=== PATIENT | female | born 1995 | race Caucasian/White ===

== ENCOUNTER 2020-06-15 19:34 | Observation (INO) | payer BC, OTHER ==
[2020-06-15] MEDS ORDERED: SODIUM CHLORIDE 0.9% 500 ML 500 ML IV ONE (20:02)
[2020-06-15] MEDS ORDERED: SODIUM CHLORIDE 0.9% 1,000 ML IV ONE (20:02)
[2020-06-15] MEDS ORDERED: ACETAMINOPHEN TAB 325 MG TAB PO STA (20:09)
--- NOTE | 2020-06-15 20:17 | ED ---
Nausea/Vomiting/Diarrhea HPI - General Chief complaint: Nausea/Vomiting/Diarrhea Stated complaint: 17 wks preg, Vomiting Time Seen by Provider: 06/15/20 19:55 Source: patient Mode of arrival: ambulatory Limitations: no limitations - History of Present Illness Initial comments: 24yo female who is currently 17 weeks presenting for nausea/vomiting, fevers. Patient states that for the past 5 days she has had increased nausea and vomiting that she had not experienced since early . pt denies cough, congestion, CP and SOB stating that her recent covid test was negative. Pt states she did struggle with UTI her last . Denies flank pain, hx of kidney stones, or abdomina/pelvic pain. Denies diarrhea. pt states that she has had fevers for the past 2 days. patient states she went to [facility] where she was given zofran and told to come to the [facility]. Pt states that she is concerned that she hasnt felt baby move and much. Denies vaginal bleeding/discharge. Denies cramping. pt appears well in no distress on arrival. however is febrile with elevation of HR. - Related Data Home Medications Medication Instructions Recorded Confirmed Gummy 1 tab PO DAILY 06/15/20 06/15/20 Allergies Allergy/AdvReac Type Severity Reaction Status Date / Time No Known Allergies Allergy Verified 06/15/20 20:42 Review of Systems ROS Statement: Those systems with pertinent positive or pertinent negative responses have been documented in the HPI. ROS Other: All systems not noted in ROS Statement are negative. Past Medical History Past Medical History: No Reported History History of Any Multi-Drug Resistant Organisms: None Reported Past Surgical History: No Surgical Hx Reported Past Psychological History: No Psychological Hx Reported Smoking Status: Never smoker Past Alcohol Use History: None Reported Past Drug Use History: None Reported General Exam - General Exam Comments Initial Comments: General: The patient is awake and alert, in no distress Eye: Pupils are equal, round and reactive to light, extra-ocular movements are intact. No nystagmus. There is normal conjunctiva bilaterally. No signs of i cterus. Ears, nose, mouth and throat: There are moist mucous membranes and no oral lesions. Neck: The neck is supple, there is no tenderness or JVD. Cardiovascular: There is a regular rate and rhythm. No murmur, rub or gallop is appreciated. Respiratory: Lungs are clear to auscultation, respirations are non-labored, breath sounds are equal. No wheezes, stridor, rales, or rhonchi. Gastrointestinal: Soft, non-distended, non-tender abdomen without masses or organomegaly noted. There is no rebound or guarding present. No CVA tenderness. Musculoskeletal: Normal ROM, no tenderness. Strength 5/5. Sensation intact. Pulses equal bilaterally 2+. Neurological: A&O x 3. CN II-XII intact grossly, There are no obvious motor or sensory deficits. Coordination appears grossly intact. Speech is normal. Skin: Skin is warm and dry and no rashes or lesions are noted. Psychiatric: Cooperative, appropriate mood & affect, normal judgment. Limitations: no limitations Course Vital Signs 06/15/20 06/15/20 19:43 21:30 Temperature 100.6 F H Pulse Rate 134 H 116 H Respiratory 18 20 Rate Blood Pressure 116/73 120/70 O2 Sat by Pulse 99 99 Oximetry Medical Decision Making - Medical Decision Making 17 week female. Presenting for fevers vomiting. History of frequent UTIs. Concern for polynephritis given urinalysis, patient's leukocytosis. Patient states this is what she suspected. Patient given Zofran at the urgent care this seemed to help patient's emesis. Patient given IV hydration with cultures pending lactic within normal limits. Patient was given Tylenol for fevers. EKG sinus tachycardia. Patient's heart tones are slightly increased from normal levels.. [employer] Dr. Herrera was consulted and he recommended admission to medicine with OB on consultation. He is agreeable to current care plan, we discussed increased heart rate. pt is agreeable to admission. Dr Joyce accepted patient. - Lab Data Result diagrams: 06/15/20 20:15 06/15/20 20:15 Lab Results 06/15/20 06/15/20 06/15/20 Range/Units 20:15 20:15 20:15 WBC 26.6 H (3.8-10.6) k/uL RBC 3.89 (3.80-5.40) m/uL Hgb 11.1 L (11.4-16.0) gm/dL Hct 32.8 L (34.0-46.0) % MCV 84.3 (80.0-100.0) fL MCH 28.4 (25.0-35.0) pg MCHC 33.7 (31.0-37.0) g/dL RDW 13.0 (11.5-15.5) % Plt Count 245 (150-450) k/uL MPV 8.7 Neutrophils % 88 % Lymphocytes % 4 % Monocytes % 5 % Eosinophils % 0 % Basophils % 0 % Neutrophils # 23.5 H (1.3-7.7) k/uL Lymphocytes # 1.1 (1.0-4.8) k/uL Monocytes # 1.3 H (0-1.0) k/uL Eosinophils # 0.1 (0-0.7) k/uL Basophils # 0.1 (0-0.2) k/uL Sodium 130 L (137-145) mmol/L Potassium 3.2 L (3.5-5.1) mmol/L Chloride 101 (98-107) mmol/L Carbon Dioxide 20 L (22-30) mmol/L Anion Gap 9 mmol/L BUN 6 L (7-17) mg/dL Creatinine 0.65 (0.52-1.04) mg/dL Est GFR (CKD-EPI)AfAm >90 (>60 ml/min/1.73 sqM) Est GFR (CKD-EPI)NonAf >90 (>60 ml/min/1.73 sqM) Glucose 105 H (74-99) mg/dL Plasma Lactic Acid Juan (0.7-2.0) mmol/L Calcium 9.5 (8.4-10.2) mg/dL Total Bilirubin 0.8 (0.2-1.3) mg/dL AST 20 (14-36) U/L ALT 13 (4-34) U/L Alkaline Phosphatase 196 H (38-126) U/L Total Protein 7.1 (6.3-8.2) g/dL Albumin 3.8 (3.5-5.0) g/dL Urine Color Yellow Urine Appearance Cloudy H (Clear) Urine pH 6.0 (5.0-8.0) Ur Specific [place] 1.021 (1.001-1.035) Urine Protein 1+ H (Negative) Urine Glucose (UA) Negative (Negative) Urine Ketones 4+ H (Negative) Urine Blood Trace H (Negative) Urine Nitrite Positive H (Negative) Urine Bilirubin Negative (Negative) Urine Urobilinogen 2.0 (<2.0) mg/dL Ur Leukocyte Esterase Large H (Negative) Urine RBC 5 (0-5) /hpf Urine WBC 47 H (0-5) /hpf Ur Squamous Epith Cells 8 H (0-4) /hpf Urine Bacteria Many H (None) /hpf Urine Mucus Many H (None) /hpf Coronavirus (PCR) (Not Detectd) 06/15/20 06/15/20 Range/Units 20:15 20:15 WBC (3.8-10.6) k/uL RBC (3.80-5.40) m/uL Hgb (11.4-16.0) gm/dL Hct (34.0-46.0) % MCV (80.0-100.0) fL MCH (25.0-35.0) pg MCHC (31.0-37.0) g/dL RDW (11.5-15.5) % Plt Count (150-450) k/uL MPV Neutrophils % % Lymphocytes % % Monocytes % % Eosinophils % % Basophils % % Neutrophils # (1.3-7.7) k/uL Lymphocytes # (1.0-4.8) k/uL Monocytes # (0-1.0) k/uL Eosinophils # (0-0.7) k/uL Basophils # (0-0.2) k/uL Sodium (137-145) mmol/L Potassium (3.5-5.1) mmol/L Chloride (98-107) mmol/L Carbon Dioxide (22-30) mmol/L Anion Gap mmol/L BUN (7-17) mg/dL Creatinine (0.52-1.04) mg/dL Est GFR (CKD-EPI)AfAm (>60 ml/min/1.73 sqM) Est GFR (CKD-EPI)NonAf (>60 ml/min/1.73 sqM) Glucose (74-99) mg/dL Plasma Lactic Acid Juan 1.1 (0.7-2.0) mmol/L Calcium (8.4-10.2) mg/dL Total Bilirubin (0.2-1.3) mg/dL AST (14-36) U/L ALT (4-34) U/L Alkaline Phosphatase (38-126) U/L Total Protein (6.3-8.2) g/dL Albumin (3.5-5.0) g/dL Urine Color Urine Appearance (Clear) Urine pH (5.0-8.0) Ur Specific [place] (1.001-1.035) Urine Protein (Negative) Urine Glucose (UA) (Negative) Urine Ketones (Negative) Urine Blood (Negative) Urine Nitrite (Negative) Urine Bilirubin (Negative) Urine Urobilinogen (<2.0) mg/dL Ur Leukocyte Esterase (Negative) Urine RBC (0-5) /hpf Urine WBC (0-5) /hpf Ur Squamous Epith Cells (0-4) /hpf Urine Bacteria (None) /hpf Urine Mucus (None) /hpf Coronavirus (PCR) Not Detected (Not Detectd) Disposition Clinical Impression: Pyelonephritis affecting in second trimester Disposition: ADMITTED IP TO THIS [facility] Condition: Stable Is patient prescribed a controlled substance at d/c from ED?: No Referrals: None,Stated [Primary Care Provider] - 1-2 days Time of Disposition: 21:50 Decision to Admit Reason: Admit from EC Decision Date: 06/15/20 Decision Time: 21:50
[2020-06-15] MEDS: SODIUM CHLORIDE 0.9% 1,000 ML IV SCH (20:25)
[2020-06-15 20:51] LABS: Basophils # (A) 0.1 k/uL (0-0.2); Basophils % (A) 0 %; Eosinophils # (A) 0.1 k/uL (0-0.7); Eosinophils % (A) 0 %; HCT 32.8 % (34.0-46.0); HGB 11.1 gm/dL (11.4-16.0); Lymphocytes # (A) 1.1 k/uL (1.0-4.8); Lymphocytes % (A) 4 %; MCH 28.4 pg (25.0-35.0); MCHC 33.7 g/dL (31.0-37.0); MCV 84.3 fL (80.0-100.0); Mean Platelet Volume 8.7; Monocytes # (A) 1.3 k/uL (0-1.0); Monocytes % (A) 5 %; Neutrophils # (A) 23.5 k/uL (1.3-7.7); Neutrophils % (A) 88 %; Platelet Count 245 k/uL (150-450); RBC 3.89 m/uL (3.80-5.40); WBC 26.6 k/uL (3.8-10.6)
[2020-06-15 21:01] LABS: ALT 13 U/L (4-34); AST 20 U/L (14-36); African American GFR (CKD) >90 (>60 ml/min/1.73 sqM); Albumin 3.8 g/dL (3.5-5.0); Alkaline Phosphatase 196 U/L (38-126); Anion Gap 9 mmol/L; Blood Urea Nitrogen 6 mg/dL (7-17); Calcium 9.5 mg/dL (8.4-10.2); Carbon Dioxide 20 mmol/L (22-30); Chloride 101 mmol/L (98-107); Glucose 105 mg/dL (74-99); Non-African American GFR(CKD) >90 (>60 ml/min/1.73 sqM); Potassium 3.2 mmol/L (3.5-5.1); Sodium 130 mmol/L (137-145); Total Bilirubin 0.8 mg/dL (0.2-1.3); Total Protein 7.1 g/dL (6.3-8.2)
[2020-06-15 21:08] LABS: Appearance,Urine Cloudy (Clear); Bacteria,Urine Many /hpf; Bilirubin,Urine Negative (Negative); Blood,Urine Trace (Negative); Color,Urine Yellow; Glucose,Urine (UA) Negative (Negative); Ketones,Urine 4+ (Negative); Leukocyte Esterase,Urine Large (Negative); Mucus,Urine Many /hpf; Nitrite,Urine Positive (Negative); Protein,Urine 1+ (Negative); RBC,Urine 5 /hpf (0-5); Specific Gravity,Urine 1.021 (1.001-1.035); Squamous Epithelial Cell,Urine 8 /hpf (0-4); WBC,Urine 47 /hpf (0-5)
[2020-06-15] MEDS ORDERED: POTASSIUM CHLORIDE ER 20 MEQ TAB.ER PO STA (21:12)
[2020-06-15] MEDS ORDERED: NALOXONE 0.4 MG/ML 1 ML VIAL IV PRN (21:46)
[2020-06-15] MEDS ORDERED: FAMOTIDINE 20 MG/2 ML VIAL IV STA (22:15)
[2020-06-16] MEDS: ACETAMINOPHEN TAB 325 MG TAB PO PRN ×4 (01:30→19:38)
[2020-06-16] MEDS: SODIUM CHLORIDE 0.9% 1,000 ML IV SCH ×2 (09:03→17:01)
--- NOTE | 2020-06-16 11:05 | P.OBCN ---
History of Present Illness Consult date: 06/16/20 Requesting physician: Sofía Joyce Reason for consult: early problem Chief complaint: UTI with hyperpyrexia 17 weeks History of present illness: Nanette relates that she has had high temperatures and nausea and vomiting for the last few days. She initially wasn't that concerned but as her temperature started to go up she brought herself to the hospital last night and was admitted for urinary tract infection versus pyelonephritis. She has had several blood pressures that are significantly elevated even to 103, but Tylenol has reduce them well. She has received 1 dose of Rocephin for antibiotics and a urine culture is pending. Initially a very concerned with the possibility of pyelonephritis, but on physical exam I did do costovertebral angle tenderness and she has none. This may be just a complex urinary tract infection and not pyelonephritis but regardless treatment will be the same. Will await your recommendations on antibiotics, hopefully the preliminary culture will add something to the treatment regimen but if not repeat Rocephin every 24 hours for now likely will be indicated. She is tolerating a liquid diet at this time and once feeling better may be advanced. From a standpoint other than having a renal vitamins there really isn't anything else significant that we would change. All questions are answered for her at this time and she is at least from a standpoint stable at this time. She does relate however, that she did have multiple urinary tract infections with her last and we did discuss the possibility of not probability that she may need to be on antibiotics long-term potentially even through the entire if she is going to continue to have bladder infections or pyelonephritis. Past Medical History Past Medical History: No Reported History Additional Past Medical History / Comment(s): hx of UTIs with History of Any Multi-Drug Resistant Organisms: None Reported Past Surgical History: No Surgical Hx Reported Past Anesthesia/Blood Transfusion Reactions: No Reported Reaction Past Psychological History: Anxiety, Depression Smoking Status: Never smoker Past Alcohol Use History: None Reported Past Drug Use History: None Reported - Past Family History Father Additional Family Medical History / Comment(s): "heart problems" Mother Additional Family Medical History / Comment(s): lupus Medications and Allergies Home Medications Medication Instructions Recorded Confirmed Type Gummy 1 tab PO DAILY 12/18/20 12/18/20 History Allergies Allergy/AdvReac Type Severity Reaction Status Date / Time No Known Allergies Allergy Verified 06/15/20 22:28 Exam Osteopathic Statement: *. No significant issues noted on an osteopathic structural exam other than those noted in the History and Physical/Consult. Vital Signs Temp Pulse Pulse Resp BP BP Pulse Ox 06/16/20 05:51 103.2 F H 06/16/20 01:28 99.7 F H 119 H 14 118/68 100 06/15/20 22:33 98.6 F 111 H 16 117/75 98 06/15/20 22:12 99.9 F H 118 H 18 119/65 99 06/15/20 21:30 116 H 20 120/70 99 06/15/20 19:43 100.6 F H 134 H 18 116/73 99 Intake and Output 06/15/20 06/16/20 06/16/20 22:59 06:59 14:59 Other: Voiding Method Toilet # Voids 2 Weight 80.286 kg - OBG Physical Exam Breast: both: normal (no masses) Abdomen: bowel sounds normal, no diffuse tenderness, no bruit present, no guarding noted, no hepatomegaly, no splenomegaly, no mass Vulva: both: normal Vagina: normal moisture, no discharge Cervix: no lesion, no discharge Uterus: normal size, normal contour Adnexa: both: normal Anus/Rectum: normal perianal skin, no rectal mass, no hemorrhoids, heme negative Results Result Diagrams: 06/15/20 20:15 06/15/20 20:15 Abnormal Lab Results - Last 24 Hours (Table) 06/15/20 06/15/20 06/15/20 Range/Units 20:15 20:15 20:15 WBC 26.6 H (3.8-10.6) k/uL Hgb 11.1 L (11.4-16.0) gm/dL Hct 32.8 L (34.0-46.0) % Neutrophils # 23.5 H (1.3-7.7) k/uL Monocytes # 1.3 H (0-1.0) k/uL Sodium 130 L (137-145) mmol/L Potassium 3.2 L (3.5-5.1) mmol/L Carbon Dioxide 20 L (22-30) mmol/L BUN 6 L (7-17) mg/dL Glucose 105 H (74-99) mg/dL Alkaline Phosphatase 196 H (38-126) U/L Urine Appearance Cloudy H (Clear) Urine Protein 1+ H (Negative) Urine Ketones 4+ H (Negative) Urine Blood Trace H (Negative) Urine Nitrite Positive H (Negative) Ur Leukocyte Esterase Large H (Negative) Urine WBC 47 H (0-5) /hpf Ur Squamous Epith Cells 8 H (0-4) /hpf Urine Bacteria Many H (None) /hpf Urine Mucus Many H (None) /hpf Microbiology - Last 24 Hours (Table) 06/15/20 20:15 Urine Culture - Preliminary Urine,Clean Catch
[2020-06-16 13:29] LABS: Basophils % (A) 0 %; Eosinophils % (A) 0 %; HCT 28.2 % (34.0-46.0); Lymphocytes # (A) 1.4 k/uL (1.0-4.8); Lymphocytes % (A) 7 %; MCH 28.1 pg (25.0-35.0); MCHC 32.9 g/dL (31.0-37.0); MCV 85.6 fL (80.0-100.0); Mean Platelet Volume 7.9; Monocytes # (A) 0.9 k/uL (0-1.0); Monocytes % (A) 5 %; Neutrophils # (A) 17.1 k/uL (1.3-7.7); Neutrophils % (A) 86 %; Platelet Count 197 k/uL (150-450); RDW 13.1 % (11.5-15.5); WBC 19.9 k/uL (3.8-10.6)
[2020-06-16 13:31] LABS: HGB 9.3 gm/dL (11.4-16.0)
[2020-06-16] MEDS: FAMOTIDINE 20 MG/2 ML VIAL IV SCH (15:09)
--- NOTE | 2020-06-16 16:45 | P.HPIM ---
History of Present Illness H&P Date: 06/16/20 Chief Complaint: Fever Patient is a 24-year-old female with a known history of anxiety/depression, 17 week intrauterine presents to ER with complaints of nausea vomiting which has been present for the past 5 days. Patient was also having fever for the past 2 days and initially not concerned much but since her temperature is increasing she called her physician and was recommended to go to [facility] where she was given Zofran and was told to go to ER.. Patient otherwise denied any complaints of abdominal pain. Denied any abdominal cramps. No complaints of diarrhea or dysuria. No cough or sputum production. Patient did have urinary tract infection during her prior . Patient denied any leg swelling. Patient was febrile on admission T-max 100.6 and tachycardic on admission. EKG showed sinus tachycardia. Laboratory data showed the WBC 26.6, hemoglobin 11.1 and platelets 245 and absolute neutrophil count is 23.5 Sodium 130, potassium 3.2, chloride 20, BP and 6, creatinine 0.65, alk phos 196. Liver enzymes are not elevated. Urinalysis showed cloudy with 1+ protein and 4+ ketones and nitrite positive and large leukocyte esterase. RBCs 5 and WBC is 47 and Coumadin 19 PCR not detected. Review of Systems Constitutional: Patient does have fever. No chills. . No generalized weakness or weight loss. Abdomen: Patient does have nausea vomiting. No abdominal pain. No diarrhea.. Cardiovascular: Patient denies any chest pain or short of breath no palpitations. Respiratory: patient denied any cough is from production. No shortness of breath Neurologic: Patient denied any numbness or tingling headache. Musculoskeletal: Patient denies any complaints of joint swelling or deformity. Skin: Negative Psychiatric: Negative Endocrine: No heat or cold intolerance. No recent weight gain. Genitourinary: No dysuria or hematuria. All other 14 point ROS negative except the above Past Medical History Past Medical History: No Reported History Additional Past Medical History / Comment(s): hx of UTIs with History of Any Multi-Drug Resistant Organisms: None Reported Past Surgical History: No Surgical Hx Reported Past Anesthesia/Blood Transfusion Reactions: No Reported Reaction Past Psychological History: Anxiety, Depression Smoking Status: Never smoker Past Alcohol Use History: None Reported Past Drug Use History: None Reported - Past Family History Father Additional Family Medical History / Comment(s): "heart problems" Mother Additional Family Medical History / Comment(s): lupus Medications and Allergies Home Medications Medication Instructions Recorded Confirmed Type Gummy 1 tab PO DAILY 06/15/20 06/15/20 History Allergies Allergy/AdvReac Type Severity Reaction Status Date / Time No Known Allergies Allergy Verified 06/15/20 22:28 Physical Exam Vitals: Vital Signs Temp Pulse Pulse Resp BP BP Pulse Ox 06/16/20 11:55 98.4 F 105 H 17 115/70 06/16/20 05:51 103.2 F H 06/16/20 01:28 99.7 F H 119 H 14 118/68 100 06/15/20 22:33 98.6 F 111 H 16 117/75 98 06/15/20 22:12 99.9 F H 118 H 18 119/65 99 06/15/20 21:30 116 H 20 120/70 99 06/15/20 19:43 100.6 F H 134 H 18 116/73 99 Intake and Output 06/15/20 06/16/20 06/16/20 22:59 06:59 14:59 Other: Voiding Method Toilet # Voids 2 Weight 80.286 kg PHYSICAL EXAMINATION: Patient is lying in the bed comfortably, no acute distress, awake alert and oriented.. HEENT: Normocephalic. Neck is supple. Pupils reactive. Nostrils clear. Oral cavity is moist. Ears reveal no drainage. Neck reveals no JVD, carotid bruits, or thyromegaly. CHEST EXAMINATION: Trachea is central. Symmetrical expansion. Lung herron clear to auscultation and percussion. CARDIAC: Normal S1, S2 with no gallops. No murmurs ABDOMEN: Soft. Bowel sounds normal. No organomegaly. No abdominal bruits. Extremities: reveal no edema. No clubbing or cyanosis Neurologically awake, alert, oriented x3 with well-coordinated movements. No focal deficits noted Skin: No rash or skin lesions. Psychiatric: Coperative. Nonsuicidal Musculoskeletal: No joint swelling or deformity. Normal range of motion. Results CBC & Chem 7: 06/16/20 12:52 06/15/20 20:15 Labs: Abnormal Lab Results - Last 24 Hours (Table) 06/15/20 06/15/20 06/15/20 Range/Units 20:15 20:15 20:15 WBC 26.6 H (3.8-10.6) k/uL Hgb 11.1 L (11.4-16.0) gm/dL Hct 32.8 L (34.0-46.0) % Neutrophils # 23.5 H (1.3-7.7) k/uL Monocytes # 1.3 H (0-1.0) k/uL Sodium 130 L (137-145) mmol/L Potassium 3.2 L (3.5-5.1) mmol/L Carbon Dioxide 20 L (22-30) mmol/L BUN 6 L (7-17) mg/dL Glucose 105 H (74-99) mg/dL Alkaline Phosphatase 196 H (38-126) U/L Urine Appearance Cloudy H (Clear) Urine Protein 1+ H (Negative) Urine Ketones 4+ H (Negative) Urine Blood Trace H (Negative) Urine Nitrite Positive H (Negative) Ur Leukocyte Esterase Large H (Negative) Urine WBC 47 H (0-5) /hpf Ur Squamous Epith Cells 8 H (0-4) /hpf Urine Bacteria Many H (None) /hpf Urine Mucus Many H (None) /hpf Microbiology - Last 24 Hours (Table) 06/15/20 20:15 Urine Culture - Preliminary Urine,Clean Catch Thrombosis Risk Factor Assmnt - DVT/VTE Prophylaxis DVT/VTE Prophylaxis: Mechanical Prophylaxis ordered - Choose All That Apply Any of the Below Risk Factors Present?: Yes Each Factor Represents 1 point: Obesity (BMI >25), or Other Risk Factors: No Other congenital or acquired thrombophilia - If yes, enter type in comment: No Thrombosis Risk Factor Assessment Total Risk Factor Score: 2 Thrombosis Risk Factor Assessment Level: Low Risk Assessment and Plan Assessment: Acute urinary tract infection. Unlikely acute pyelonephritis. Sepsis secondary to urinary tract infection Intractable nausea and vomiting. Improved now Hypovolemic hyponatremia Hypokalemia Elevated alk phos level Anxiety/depression history 17 week intrauterine GI and DVT prophylaxis with Pepcid and early ambulation Plan: Patient will be continued on IV hydration with normal saline, symptomatic management for nausea and vomiting. Patient was started on ceftriaxone 1 g every 24 hours and follow-up urine culture reports. Continue to replace electrolytes and follow up closely. [employer] service was consulted for evaluation. Continue with Pepcid for GI prophylaxis. Further recommendations based on the clinical course. Encourage ambulation. Time with Patient: Greater than 30
[2020-06-17] MEDS: SODIUM CHLORIDE 0.9% 1,000 ML IV SCH ×2 (02:42→12:29)
[2020-06-17] MEDS: FAMOTIDINE 20 MG/2 ML VIAL IV SCH (02:43)
[2020-06-17] MEDS: ACETAMINOPHEN TAB 325 MG TAB PO PRN ×5 (02:43→23:26)
[2020-06-17 06:24] LABS: Basophils % (A) 0 %; Eosinophils # (A) 0.1 k/uL (0-0.7); Eosinophils % (A) 0 %; HCT 26.6 % (34.0-46.0); HGB 8.9 gm/dL (11.4-16.0); Lymphocytes # (A) 1.5 k/uL (1.0-4.8); Lymphocytes % (A) 9 %; MCH 28.6 pg (25.0-35.0); MCHC 33.6 g/dL (31.0-37.0); MCV 85.1 fL (80.0-100.0); Mean Platelet Volume 7.6; Monocytes # (A) 0.9 k/uL (0-1.0); Monocytes % (A) 5 %; Neutrophils # (A) 12.7 k/uL (1.3-7.7); Neutrophils % (A) 81 %; Platelet Count 206 k/uL (150-450); RBC 3.13 m/uL (3.80-5.40); RDW 13.3 % (11.5-15.5); WBC 15.7 k/uL (3.8-10.6)
[2020-06-17 06:42] LABS: African American GFR (CKD) >90 (>60 ml/min/1.73 sqM); Anion Gap 5 mmol/L; Blood Urea Nitrogen 3 mg/dL (7-17); Calcium 8.1 mg/dL (8.4-10.2); Carbon Dioxide 20 mmol/L (22-30); Chloride 110 mmol/L (98-107); Glucose 86 mg/dL (74-99); Non-African American GFR(CKD) >90 (>60 ml/min/1.73 sqM); Sodium 135 mmol/L (137-145)
--- NOTE | 2020-06-17 11:40 | P.PN ---
Progress Note - Text Progress Note Date: 06/17/20 Nanette is seen and evaluated this morning. Overall she is doing much better. There is been not 24 hours but certainly much longer stretch time without any more high temperatures. Her white blood cell count is now down to 15. Overall she does appear like she is feeling better likely she'll need 1 more day of antibiotics through the IV and then hopefully we can discharge her to home tomorrow. She is tolerating a diet but says she is not eating very much this time. She is noted to have hypokalemia on her labs likely which will need to be replaced will defer to medicine for that replacement. Otherwise she does appear to be doing better. All other questions are answered for her at this time. An following discharge L plan to see her in approximately 11 week to 10 days depending on what they she is actually discharge.
[2020-06-17] MEDS ORDERED: Potassium Replacement Protocol 1 EACH MISC MISCELLANE PRN (12:55)
[2020-06-17] MEDS: PRENATAL VIT-IRON-FOLIC ACID 1 EACH CAP PO SCH (13:42)
[2020-06-17] MEDS ORDERED: SODIUM CHLORIDE 0.9% 1,000 ML IV SCH (19:00)
--- NOTE | 2020-06-17 23:50 | P.PN ---
Subjective Progress Note Date: 06/17/20 Patient is a 24-year-old female with a known history of anxiety/depression, 17 week intrauterine presents to ER with complaints of nausea vomiting which has been present for the past 5 days. Patient was also having fever for the past 2 days and initially not concerned much but since her temperature is increasing she called her physician and was recommended to go to [facility] where she was given Zofran and was told to go to ER.. Patient otherwise denied any complaints of abdominal pain. Denied any abdominal cramps. No complaints of diarrhea or dysuria. No cough or sputum production. Patient did have urinary tract infection during her prior . Patient denied any leg swelling. Patient was febrile on admission T-max 100.6 and tachycardic on admission. EKG showed sinus tachycardia. Laboratory data showed the WBC 26.6, hemoglobin 11.1 and platelets 245 and absolute neutrophil count is 23.5 Sodium 130, potassium 3.2, chloride 20, BP and 6, creatinine 0.65, alk phos 196. Liver enzymes are not elevated. Urinalysis showed cloudy with 1+ protein and 4+ ketones and nitrite positive and large leukocyte esterase. RBCs 5 and WBC is 47 and Coumadin 19 PCR not detected. 06/17/2020 Patient is currently lying in the bed comfortably. Doing better compared to yesterday. Patient has been afebrile currently. T-max was 100.6. Tachycardia is improving as well. Urine culture showed gram-negative bacilli. Patient is being continued on IV antibiotics in the form of ceftriaxone. Potassium was replaced as per protocol. Repeat CBC and BMP tomorrow. Leukocytosis improving as well. Patient is tolerating oral diet. Plan current medications reviewed. Objective - Vital Signs Vital signs: Vital Signs Temp 97.9 F 06/17/20 02:00 Pulse 98 06/16/20 23:23 Resp 16 06/16/20 23:23 BP 109/68 06/16/20 23:23 Pulse Ox 99 06/16/20 23:23 Intake & Output 06/16/20 06/17/20 06/17/20 18:59 06:59 18:59 Intake Total 600 Balance 600 Intake: Oral 600 Other: # Voids 2 2 - Exam PHYSICAL EXAMINATION: Patient is lying in the bed comfortably, no acute distress, awake alert and oriented.. HEENT: Normocephalic. Neck is supple. Pupils reactive. Nostrils clear. Oral cavity is moist. Ears reveal no drainage. Neck reveals no JVD, carotid bruits, or thyromegaly. CHEST EXAMINATION: Trachea is central. Symmetrical expansion. Lung herron clear to auscultation and percussion. CARDIAC: Normal S1, S2 with no gallops. No murmurs ABDOMEN: Soft. Bowel sounds normal. No organomegaly. No abdominal bruits. Extremities: reveal no edema. No clubbing or cyanosis Neurologically awake, alert, oriented x3 with well-coordinated movements. No focal deficits noted Skin: No rash or skin lesions. Psychiatric: Coperative. Nonsuicidal Musculoskeletal: No joint swelling or deformity. Normal range of motion. - Labs CBC & Chem 7: 06/17/20 06:11 06/17/20 06:11 Labs: Abnormal Lab Results - Last 24 Hours (Table) 06/17/20 06/17/20 Range/Units 06:11 06:11 WBC 15.7 H (3.8-10.6) k/uL RBC 3.13 L (3.80-5.40) m/uL Hgb 8.9 L (11.4-16.0) gm/dL Hct 26.6 L (34.0-46.0) % Neutrophils # 12.7 H (1.3-7.7) k/uL Sodium 135 L (137-145) mmol/L Potassium 3.0 L (3.5-5.1) mmol/L Chloride 110 H (98-107) mmol/L Carbon Dioxide 20 L (22-30) mmol/L BUN 3 L (7-17) mg/dL Creatinine 0.51 L (0.52-1.04) mg/dL Calcium 8.1 L (8.4-10.2) mg/dL Microbiology - Last 24 Hours (Table) 06/15/20 20:15 Urine Culture - Preliminary Urine,Clean Catch Gram Neg Bacilli 06/15/20 20:15 Blood Culture - Preliminary Blood No Growth after 24 hours Assessment and Plan Assessment: Acute urinary tract infection with gram negative bacilli.. Unlikely acute pyelonephritis. Sepsis secondary to urinary tract infection Intractable nausea and vomiting. Improved now Hypovolemic hyponatremia. improved Hypokalemia Elevated alk phos level Anxiety/depression history 17 week intrauterine GI and DVT prophylaxis with Pepcid and early ambulation Plan: Patient will be continued on IV hydration with normal saline, symptomatic management for nausea and vomiting. Patient was started on ceftriaxone 1 g every 24 hours and follow-up urine culture reports. Continue to replace electrolytes and follow up closely. [employer] service is following.. Continue with Pepcid for GI prophylaxis. Further recommendations based on the clinical course. Encourage ambulation. Time with Patient: Greater than 30
[2020-06-18] MEDS: ACETAMINOPHEN TAB 325 MG TAB PO PRN ×2 (06:22→10:23)
[2020-06-18] MEDS: SODIUM CHLORIDE 0.9% 1,000 ML IV SCH (07:50)
[2020-06-18] MEDS: FAMOTIDINE 20 MG/2 ML VIAL IV SCH ×2 (07:50→10:23)
[2020-06-18 08:09] LABS: Basophils % (A) 0 %; Eosinophils # (A) 0.1 k/uL (0-0.7); Eosinophils % (A) 1 %; HGB 9.8 gm/dL (11.4-16.0); Lymphocytes # (A) 1.5 k/uL (1.0-4.8); Lymphocytes % (A) 13 %; MCHC 33.9 g/dL (31.0-37.0); MCV 85.6 fL (80.0-100.0); Mean Platelet Volume 7.3; Monocytes # (A) 0.5 k/uL (0-1.0); Monocytes % (A) 4 %; Neutrophils # (A) 8.9 k/uL (1.3-7.7); Neutrophils % (A) 78 %; Platelet Count 260 k/uL (150-450); RBC 3.39 m/uL (3.80-5.40); RDW 13.1 % (11.5-15.5); WBC 11.5 k/uL (3.8-10.6)
[2020-06-18 08:49] VITALS: BP 133/76; PULSE 109; RESP 15; TEMP 98
[2020-06-18 09:13] LABS: African American GFR (CKD) >90 (>60 ml/min/1.73 sqM); Anion Gap 6 mmol/L; Blood Urea Nitrogen 4 mg/dL (7-17); Calcium 8.5 mg/dL (8.4-10.2); Carbon Dioxide 22 mmol/L (22-30); Chloride 108 mmol/L (98-107); Glucose 78 mg/dL (74-99); Magnesium 1.9 mg/dL (1.6-2.3); Non-African American GFR(CKD) >90 (>60 ml/min/1.73 sqM); Sodium 136 mmol/L (137-145)
[2020-06-18] MEDS ORDERED: POTASSIUM CHLORIDE ER 20 MEQ TAB.ER PO STA (11:14)
[2020-06-18] MEDS: PRENATAL VIT-IRON-FOLIC ACID 1 EACH CAP PO SCH (13:02)
--- NOTE | 2020-06-25 22:34 | P.DS ---
Providers Date of admission: 06/15/20 21:51 Expected date of discharge: 06/18/20 Attending physician: Sofía Joyce Consults: 06/15/20 21:48 Consult Physician Routine Consulting Provider: Calvin Garner Consult Reason/Comments: , suspected pyelonephritis Do you want consulting provider notified?: Already Contacted Primary care physician: Stated None Hospital Course: Discharge diagnosis Acute urinary tract infection with E. coli.. Unlikely acute pyelonephritis. Sepsis secondary to urinary tract infection Intractable nausea and vomiting. Improved now Hypovolemic hyponatremia. improved Hypokalemia Elevated alk phos level Anxiety/depression history 17 week intrauterine GI and DVT prophylaxis with Pepcid and early ambulatio Hospital course Patient is a 24-year-old female with a known history of anxiety/depression, 17 week intrauterine presents to ER with complaints of nausea vomiting which has been present for the past 5 days. Patient was also having fever for the past 2 days and initially not concerned much but since her temperature is increasing she called her physician and was recommended to go to [facility] where she was given Zofran and was told to go to ER.. Patient otherwise denied any complaints of abdominal pain. Denied any abdominal cramps. No complaints of diarrhea or dysuria. No cough or sputum production. Patient did have urinary tract infection during her prior . Patient denied any leg swelling. Patient was febrile on admission T-max 100.6 and tachycardic on admission. EKG showed sinus tachycardia. Laboratory data showed the WBC 26.6, hemoglobin 11.1 and platelets 245 and absolute neutrophil count is 23.5 Sodium 130, potassium 3.2, chloride 20, BP and 6, creatinine 0.65, alk phos 196. Liver enzymes are not elevated. Urinalysis showed cloudy with 1+ protein and 4+ ketones and nitrite positive and large leukocyte esterase. RBCs 5 and WBC is 47 and Coumadin 19 PCR not detected. 06/17/2020 Patient is currently lying in the bed comfortably. Doing better compared to yesterday. Patient has been afebrile currently. T-max was 100.6. Tachycardia is improving as well. Urine culture showed gram-negative bacilli. Patient is being continued on IV antibiotics in the form of ceftriaxone. Potassium was replaced as per protocol. Repeat CBC and BMP tomorrow. Leukocytosis improving as well. Patient is tolerating oral diet. 06/18/2020 Patient is currently resting in the bed comfortably. No episodes of nausea or vomiting. Symptomatically much improved. Leukocytosis resolved and potassium was replaced. Urine cultures showing E. coli. Patient will be continued on Keflex to complete the antibiotic course. Patient was advised to follow-up with [facility]. Patient has been afebrile. Leukocytosis resolved. Patient is to be discharged home today. Tolerating oral diet. No other acute overnight issues. PHYSICAL EXAMINATION: Patient is lying in the bed comfortably, no acute distress, awake alert and oriented.. HEENT: Normocephalic. Neck is supple. Pupils reactive. Nostrils clear. Oral cavity is moist. Ears reveal no drainage. Neck reveals no JVD, carotid bruits, or thyromegaly. CHEST EXAMINATION: Trachea is central. Symmetrical expansion. Lung herron clear to auscultation and percussion. CARDIAC: Normal S1, S2 with no gallops. No murmurs ABDOMEN: Soft. Bowel sounds normal. No organomegaly. No abdominal bruits. Extremities: reveal no edema. No clubbing or cyanosis Neurologically awake, alert, oriented x3 with well-coordinated movements. No focal deficits noted Skin: No rash or skin lesions. Psychiatric: Coperative. Nonsuicidal Musculoskeletal: No joint swelling or deformity. Normal range of motion. Discharge vitals reviewed. Patient Condition at Discharge: Stable Plan - Discharge Summary New Discharge Prescriptions: New Cephalexin [Keflex] 500 mg PO Q8HR 1 Days #3 cap Continue Gummy 1 tab PO DAILY Discharge Medication List Gummy 1 tab PO DAILY 06/15/20 [History] Cephalexin [Keflex] 500 mg PO Q8HR 1 Days #3 cap 06/18/20 [Rx] Follow up Appointment(s)/Referral(s): None,Stated [Primary Care Provider] - 1-2 days Discharge Disposition: HOME SELF-CARE
== END 2020-06-18 13:17 | disposition home or self-care (01) ==
LOC: EC 19:34 → 4FBP 21:51
PROVIDERS: ADMIT Internal Medicine; ATTEND Internal Medicine
DX: O23.42 Unspecified infection of urinary tract in pregnancy, second trimester (principal); A41.51 Sepsis due to Escherichia coli [E. coli]; B96.89 Other specified bacterial agents as the cause of diseases classified elsewhere; O98.812 Other maternal infectious and parasitic diseases complicating pregnancy, second trimester; Z3A.17 17 weeks gestation of pregnancy; O99.282 Endocrine, nutritional and metabolic diseases complicating pregnancy, second trimester; Z87.440 Personal history of urinary (tract) infections; R50.9 Fever, unspecified; E86.1 Hypovolemia; E87.1 Hypo-osmolality and hyponatremia; Z20.828 Contact with and (suspected) exposure to other viral communicable diseases; E87.6 Hypokalemia; R74.8 Abnormal levels of other serum enzymes; F41.9 Anxiety disorder, unspecified; F32.9 Major depressive disorder, single episode, unspecified; O21.9 Vomiting of pregnancy, unspecified; R00.0 Tachycardia, unspecified
CPT/HCPCS: 96376 ×3; 96361 ×5; 96375; 96365; 99285; 36415; 93005; 80053; 80048 ×2; 83605; 83735; 85025 ×4; 81001; 87040; 87086; 87077; 87186; 87635; G0378 ×4; J0696 ×3; S0197

== ENCOUNTER 2020-11-20 09:37 | Inpatient (IN) | payer BC, OTHER ==
[~2020-11-20 09:37] MED LIST: ROPIVACAINE 5MG/ML 20ML VIAL ONE; SODIUM CHLORIDE 0.9% 100 ML BAG ONE; fentaNYL (PF) 50 MCG/ML 5 ML AMP ONE
[2020-11-21] MEDS ORDERED: LIDOCAINE 0.5% (PF) 5 MG/ML (50 ML SDV) SQ PRN (06:53)
[2020-11-21] MEDS ORDERED: METHYLERGONOVINE 0.2 MG/ML 1 ML AMP IM PRN (06:53)
[2020-11-21] MEDS ORDERED: OXYTOCIN 10 UNIT/ML 1 ML VIAL IM PRN (06:53)
[2020-11-21] MEDS ORDERED: TERBUTALINE 1 MG/ML VIAL SQ PRN (06:53)
[2020-11-21] MEDS ORDERED: CARBOPROST TROMETHAMINE 250 MCG/ML 1 ML AMP IM PRN (06:53)
[2020-11-21] MEDS ORDERED: OXYTOCIN 30 UNITS/500 ML NS 30 UNIT in SALINE 1 500ML.BAG IV SCH (07:00)
[2020-11-21 07:19] LABS: Basophils % (A) 0 %; Eosinophils # (A) 0.2 k/uL (0-0.7); Eosinophils % (A) 1 %; HCT 33.2 % (34.0-46.0); HGB 11.6 gm/dL (11.4-16.0); Lymphocytes # (A) 2.1 k/uL (1.0-4.8); Lymphocytes % (A) 15 %; MCH 29.8 pg (25.0-35.0); MCHC 34.8 g/dL (31.0-37.0); MCV 85.6 fL (80.0-100.0); Mean Platelet Volume 10.2; Monocytes # (A) 0.7 k/uL (0-1.0); Monocytes % (A) 5 %; Neutrophils % (A) 77 %; Platelet Count 187 k/uL (150-450); RBC 3.87 m/uL (3.80-5.40); WBC 14.3 k/uL (3.8-10.6)
[2020-11-21] MEDS: LACTATED RINGERS 1,000 ML IV SCH ×3 (08:14→16:16)
[2020-11-21] MEDS ORDERED: ROPIVACAINE 100 MG, fentaNYL (PF). 200 MCG in SODIUM CHLORIDE 0.9% 76 ML EPIDURAL ONE (10:55)
[2020-11-21] MEDS ORDERED: diphenhydrAMINE 50 MG/ML 1 ML VIAL IVP PRN ×2 (12:28)
[2020-11-21] MEDS ORDERED: ACETAMINOPHEN TAB 325 MG TAB PO PRN (12:28)
[2020-11-21] MEDS ORDERED: diphenhydrAMINE 50 MG CAP PO PRN (12:28)
[2020-11-21] MEDS ORDERED: ZOLPIDEM 5 MG TAB PO PRN (12:28)
[2020-11-21] MEDS ORDERED: LANOLIN CREAM 5 GM TUBE TOPICAL PRN (12:28)
[2020-11-21] MEDS ORDERED: BENZOCAINE/MENTHOL SPRAY 1 GM/SPRAY AEROSOL TOPICAL PRN (12:28)
[2020-11-21] MEDS ORDERED: HYDROCORTISONE 2.5% RECTAL CREAM 30 GM TUBE RECTAL PRN (12:28)
[2020-11-21] MEDS ORDERED: diphenhydrAMINE 25 MG CAP PO PRN (12:28)
[2020-11-21] MEDS ORDERED: SIMETHICONE 80 MG CHEWABLE PO PRN (12:28)
[2020-11-21] MEDS: IBUPROFEN 600 MG TAB PO SCH ×2 (12:34→18:31)
--- NOTE | 2020-11-21 12:45 | P.HPOB ---
History of Present Illness H&P Date: 11/21/20 Chief Complaint: Intrauterine at term: Induction of labor Nanette is a 25-year-old at 39 weeks gestation arise for induction of labor. Her course has generally been unremarkable and fall she does have a history of macrosomia ultrasounds have not shown this baby above 90th percentile. She delivered an 8 lbs. 15 oz. baby last and we expect she should be able to do well with this labor process as well. Risks of induction were reviewed with the patient and all questions were answered for her prior to proceeding. A category 1 tracing is noted. She is dilated 3 cm artificial rupture membranes was performed and clear fluid is noted. Pertinent labs could O+ blood type, Rh antibody was negative, rubella is immune, hepatitis B surface antigen/RPR/HIV/GBS were all negative Past Medical History Past Medical History: No Reported History Additional Past Medical History / Comment(s): hx of UTIs with History of Any Multi-Drug Resistant Organisms: None Reported Past Surgical History: No Surgical Hx Reported Past Anesthesia/Blood Transfusion Reactions: No Reported Reaction Past Psychological History: Anxiety, Depression Smoking Status: Never smoker Past Alcohol Use History: None Reported Past Drug Use History: None Reported - Past Family History Father Additional Family Medical History / Comment(s): "heart problems" Mother Additional Family Medical History / Comment(s): lupus Medications and Allergies Home Medications Medication Instructions Recorded Confirmed Type Pnv No.95/Ferrous Fum/Folic AC 1 each PO DAILY 11/21/20 11/21/20 History [ Multivitamin Tablet] Allergies Allergy/AdvReac Type Severity Reaction Status Date / Time No Known Allergies Allergy Verified 11/21/20 06:53 Exam Osteopathic Statement: *. No significant issues noted on an osteopathic structural exam other than those noted in the History and Physical/Consult. Vital Signs Temp Pulse Pulse Resp BP Pulse Ox 11/21/20 12:13 99 16 129/61 11/21/20 11:58 99.7 F H 110 H 16 132/60 11/21/20 06:57 98.2 F 109 H 16 141/75 97 Intake and Output 11/20/20 11/21/20 11/21/20 22:59 06:59 14:59 Intake Total 3.55 Output Total 150 Balance -146.45 Intake: Intake, IV Titration 3.55 Amount Oxytocin 30 Units/500 ml 3.55 Ns 30 unit In Saline 1 500ml.bag @ Per Protocol IV .Q0M [facility] Rx#:[id number] Output: Estimated Blood Loss 150 Other: Weight 94.801 kg - OBG Physical Exam Breast: both: normal (no masses) Abdomen: bowel sounds normal, no diffuse tenderness, no bruit present, no guarding noted, no hepatomegaly, no splenomegaly, no mass Vulva: both: normal Vagina: normal moisture, no discharge Cervix: no lesion, no discharge Uterus: normal size, normal contour Adnexa: both: normal Anus/Rectum: normal perianal skin, no rectal mass, no hemorrhoids, heme negative Results Result Diagrams: 11/21/20 06:40 Abnormal Lab Results - Last 24 Hours (Table) 11/21/20 Range/Units 06:40 WBC 14.3 H (3.8-10.6) k/uL Hct 33.2 L (34.0-46.0) % Neutrophils # 11.0 H (1.3-7.7) k/uL
--- NOTE | 2020-11-21 12:47 | P.PROBDLV ---
Vaginal Delivery Note - . Vaginal Delivery Note: Nanette progressed complete and pushing with spontaneous vaginal delivery of a viable female over a second-degree perineal laceration. Following delivery of the head from right occiput anterior position a nuchal cord 1 was noted and reduced. There was retraction of the head onto the perineum immediately following delivery of the head. With gentle downward traction there was minimal to no descent indicating shoulder dystocia. At this point we placed her in a very steep Uriah position and I did place my hand into the posterior vagina and laced my fingers under the axilla of the posterior shoulder. Rotating clockwise fashion we were able to release the anterior shoulder from underneath the pubic bone and the baby was easily delivered from this point forward. Once delivered mouth nares were quickly bulb suctioned and baby was placed on mother's abdomen where the umbilical cord was clamped cut usual fashion with nursery personnel taking over care. Placenta was then delivered intact Pitocin was added to the IV. Second degree perineal laceration was noted and easily repaired with 3-0 Vicryl following 1% Xylocaine for analgesia. scores were on the chart weight was 8 lbs. 14 oz. Both mother and baby appear stable following delivery.
[2020-11-21] MEDS ORDERED: SENNOSIDES-DOCUSATE SODIUM 1 EACH TAB PO SCH (20:00)
[2020-11-22] MEDS: IBUPROFEN 600 MG TAB PO SCH ×2 (00:20→05:40)
--- NOTE | 2020-11-22 06:26 | P.DS ---
Providers Date of admission: 11/21/20 06:23 Expected date of discharge: 11/22/20 Attending physician: Calvin Garner Primary care physician: Stated None Hospital Course: Nanette is doing very well day 1. She is ambulating, voiding and she is tolerating her diet. She voices no points and requests discharge home later today. Vital signs are stable and she is afebrile. Heart regular, lungs clear, extremities without pain. Abdomen soft uterus is firm and lochia is reported light. Assessment day 1. Plan discharged home follow up with me in 6 weeks. Prescription for Motrin is provided. Plan - Discharge Summary New Discharge Prescriptions: New Ibuprofen [Motrin] 600 mg PO Q6HR PRN #30 tab PRN Reason: Pain No Action Pnv No.95/Ferrous Fum/Folic AC [ Multivitamin Tablet] 1 each PO DAILY Discharge Medication List Pnv No.95/Ferrous Fum/Folic AC [ Multivitamin Tablet] 1 each PO DAILY 11/21/20 [History] Ibuprofen [Motrin] 600 mg PO Q6HR PRN #30 tab 11/22/20 [Rx] Follow up Appointment(s)/Referral(s): Calvin Garner DO [Doctor of Osteopathic Medicine] - 1 Week Activity/Diet/Wound Care/Special Instructions: Heavy lifting, limit stairs and driving, and pelvic rest. If any high temperatures, heavy bleeding, or severe pain call my office Discharge Disposition: HOME SELF-CARE
[2020-11-22 08:10] VITALS: RESP 14
[2020-11-22 11:50] VITALS: BP 133/85; PULSE 89; TEMP 98.4
== END 2020-11-22 12:00 | disposition home or self-care (01) | DRG 807 ==
LOC: 4FBP 11-21 06:23
PROVIDERS: ADMIT Obstetrics & Gynecology; ATTEND Obstetrics & Gynecology
PROC: 10E0XZZ Delivery of Products of Conception, External Approach (ICD-10-PCS; principal; 2020-11-21)
PROC: 0KQM0ZZ Repair Perineum Muscle, Open Approach (ICD-10-PCS; 2020-11-21)
DX: O70.1 Second degree perineal laceration during delivery (principal); Z37.0 Single live birth; Z3A.39 39 weeks gestation of pregnancy; Z87.440 Personal history of urinary (tract) infections
CPT/HCPCS: 85025; 86850; 86900; 86901